=== PATIENT | male | born 1950 | race Caucasian/White ===

== ENCOUNTER 2019-11-08 08:15 | Emergency (ER) | payer MEDICARE, SELFPAY ==
[2019-11-08 08:29] VITALS: BP 126/78; PULSE 66; RESP 16; TEMP 36.1; O2SAT 95
--- NOTE | 2019-11-08 08:29 | ED.GENADULT ---
HPI - General Adult General Chief complaint: Ear Stated complaint: ear infection Time Seen by Provider: 11/08/19 08:26 Source: patient and RN notes reviewed Mode of arrival: ambulatory Limitations: no limitations History of Present Illness HPI narrative: This is a 69 years old male presented office for evaluation of left ear pain since yesterday. Pain radiates down into his throat. Admits to recent swimming. Denies associated symptoms such as cough, fever, or sinus congestion. He tried [id number]-smesqqa eardrops and Tylenol for his symptoms.Denies sick contact. Related Data Home Medications Medication Instructions Recorded Confirmed atorvastatin 20 mg PO DAILY 11/08/19 11/08/19 Allergies Allergy/AdvReac Type Severity Reaction Status Date / Time No Known Allergies Allergy Unverified 11/08/19 08:32 Review of Systems Review of Systems: Narrative: CONSTITUTIONAL: Denies fever, chills ENT: Denies rhinorrhea, congestion. Reports left otalgia. CARDIOVASCULAR: Denies chest pain, palpitation RESPIRATORY: Denies dyspnea, wheezing, cough GASTROINTESTINAL: Denies abdominal pain, nausea, vomiting, diarrhea. SKIN: Denies rash MUSCULOSKELETAL: Denies acute back pain NEUROLOGIC: Denies lightheaded All other systems reviewed are negative, except as documented in HPI. PMFSH Social History Social History Smoking status: Never smoker Comments At time of signature, I agree with nursing past medical, surgical, social and family history. There is no relevant family history pertinent to the presenting complaint. Exam Narrative: Exam Narrative: GENERAL: This is a well-nourished, well-developed patient, in no apparent distress. EYES: Sclera clear/white. Vision is grossly intact. EARS: External ears normal, right auditory canals clear and without drainage, left canal appears erythema and edematous with tragal tenderness. Both TMs intact however there is fluid level. Hearing grossly intact. NOSE: External nose normal with no obvious nasal discharge, nares without redness, no rhinorrhea. THROAT: Mucous membranes moist, posterior pharynx clear. NECK: Neck supple, non-tender without lymphadenopathy, masses or thyromegaly. CARDIOVASCULAR: Regular rate and rhythm without murmurs, gallops, or rubs. RESPIRATORY: Clear to auscultation. Breath sounds equal bilaterally. No wheezes, rales, or rhonchi. GASTROINTESTINAL: Abdomen soft, non-tender, nondistended. Bowel sounds are active. No guarding. SKIN: warm, intact with no suspicious lesions or rash, good texture and turgor. NEURO: awake, alert, and oriented to person, place and time. There were no obvious focal neurologic abnormalities. Steady gait Mackenzie Coma Scale Eye Opening: Spontaneous 4 [place] Coma Scale Motor: Obeys Commands 6 [place] Coma Scale Verbal: Oriented 5 Course Vital Signs Vital signs: Vital Signs Temperature 96.9 F L 11/08/19 08:29 Pulse Rate 66 11/08/19 08:29 Respiratory Rate 16 11/08/19 08:29 Blood Pressure 126/78 11/08/19 08:29 Pulse Oximetry 95 11/08/19 08:29 Temperature 96.9 F L 11/08/19 08:29 Pulse Rate 66 11/08/19 08:29 Respiratory Rate 16 11/08/19 08:29 Blood Pressure 126/78 11/08/19 08:29 Pulse Oximetry 95 11/08/19 08:29 Medical Decision Making MDM Narrative Medical decision making narrative: Discharge instructions reviewed with patient, as well as provided in writing per nursing staff. The instructions also include specific and strict return/GO TO THE ER as well as f/u information. All questions have been answered, and the patient deny any further questions with discharge and discharge plan. Differential Diagnosis Differential Diagnosis: Allergic Rhinitis,Pharyngitis, Sinusitis, Bronchitis, otitis media, cerumen impaction Vital Signs Vital Signs: Vital Signs Temperature 96.9 F L 11/08/19 08:29 Pulse Rate 66 11/08/19 08:29 Respiratory Rate 11/07
== END 2019-11-08 08:49 | disposition home or self-care (01) ==
PROVIDERS: PCP Internal Medicine
DX: H60.332 Swimmer's ear, left ear (principal); E78.00 Pure hypercholesterolemia, unspecified
CPT/HCPCS: 99213; G0463

== ENCOUNTER 2022-06-13 13:28 | Outpatient (CLI) | payer MEDICARE, SELFPAY ==
--- NOTE | ~2022-06-13 | US_ITS ---
US venous doppler [facility] DATE: 06/13/2022 14:16 INDICATION: Left lower extremity edema TECHNIQUE: Real-time and color flow imaging and Doppler analysis of the veins of the left lower extre mity COMPARISON: None FINDINGS: Soft tissue edema is noted in the left popliteal and calf areas. The greater saphenous vein is patent. There is spontaneous and phasic flow and normal augmentation an d color flow signal and normal compression of the deep veins of the left lower extremity. IMPRESSION: No evidence of deep venous thrombosis of the left leg Reviewed, dictated and finalized at Location [facility]. Reviewed, dictated and finalized at location B.
== END 2022-06-13 13:29 | disposition home or self-care (01) ==
PROVIDERS: PCP Internal Medicine; Visit Provider Orthopaedic Surgery
DX: R60.0 Localized edema (principal)
CPT/HCPCS: 93971

== ENCOUNTER 2023-10-11 09:59 | Emergency (ER) | payer MEDICARE, SELFPAY ==
--- NOTE | ~2023-10-11 | US_ITS ---
EXAMINATION:US venous doppler LE INDICATION:Left calf pain and swelling TECHNIQUE: Multiple grayscale, color flow and Doppler images of the left lower extremity deep venous systems were obtained and reviewed. COMPARISON:Ultrasound dated 06/13/2022 FINDINGS: The common femoral, superficial femoral and popliteal veins demonstrate normal respiratory variation, augmentation and compressibility. Color flow is also seen within the posterior tibial, pe roneal, greater saphenous and profunda veins. IMPRESSION: 1: No lower extremity deep venous thrombosis. Reviewed, dictated and finalized at location B.
[2023-10-11 10:04] VITALS: BP 144/75; PULSE 66; RESP 16; TEMP 36.4; O2SAT 99
[2023-10-11 10:48] LABS: Basophils Percent Auto 0.6 % (0.2-1.2); Eosinophils Absolute Auto 0.5 K/mm3 (0-0.3); Eosinophils Percent Auto 6.8 % (0-4.4); Hematocrit 46.6 % (42.0-52.0); Hemoglobin 15.5 g/dL (14.0-18.0); Immature Granulocyte Absolute 0.02 K/mm3 (0.00-0.031); Immature Granulocyte Percent A 0.3 % (0-0.5); Lymphocytes Absolute Auto 1.41 K/mm3 (0.9-3.2); Lymphocytes Percent Auto 20.7 % (18.3-44.2); Mean Corpuscular HGB Conc 33.3 g/dl (32-36); Mean Corpuscular Volume 93.2 fl (80-100); Mean Platelet Volume 9.6 fl (7.4-10.4); Monocytes Absolute Auto 0.6 K/mm3 (0.1-0.6); Monocytes Percent Auto 8.4 % (2.6-8.5); Neutrophils Absolute Auto 4.3 K/mm3 (1.3-6.7); Neutrophils Percent Auto 63.2 % (45.5-73.1); Platelet Count Result 225 k/mm3 (150-375); Red Cell Distribution Width 12.6 % (11.5-14.5); White Blood Count 6.8 K/mm3 (4.5-10.0)
[2023-10-11 10:59] LABS: Alanine Aminotransferase 25 U/L (6-50); Albumin Level 4.4 g/dL (3.5-5.1); Alkaline Phosphatase 81 U/L (38-126); Anion Gap 9 mmol/L (4-12); Aspartate Amino Transferase 25 U/L (17-59); Bilirubin,Total 1.6 mg/dL (0.2-1.3); Blood Urea Nitrogen 24 mg/dL (9-20); Calcium 8.8 mg/dL (8.4-10.2); Carbon Dioxide 26 mmol/L (22-30); Chloride 100 mmol/L (98-107); Estimated CRCL calculation 66 ml/min; Estimated Glomerular Filt Rate > 60; Glucose 106 mg/dL (65-110); Potassium 4.3 mmol/L (3.4-5.0); Sodium 135 mmol/L (137-145)
[2023-10-11 11:02] LABS: Prothrombin Time 13.1 Seconds (11.1-14.7)
[2023-10-11 11:03] LABS: Partial Thromboplastin Time 27.6 Seconds (22.3-36.8)
--- NOTE | 2023-10-11 12:29 | ED.EXTPRO ---
HPI - Extremity Problem General Chief complaint: Extremity Problem,Nontraumatic Stated complaint: left calf painful, swollen Time Seen by Provider: 10/11/23 11:51 History of Present Illness HPI Narrative: 73-year-old male history of bilateral knee replacements presents to the emergency room for evaluation of swelling to his left marroquin and for 1 week. Denies any injury or trauma. No history of DVTs Or clotting disorders. States his observed swelling the around to marroquin which has caused increased pain. Denies a history of CHF. Denies any shortness of breath difficulty breathing. States the swelling began after he mowed the lawn. Denies any pain behind his knee prior to the onset of swelling. Related Data Home Medications Medication Instructions Recorded Confirmed atorvastatin 20 mg tablet 20 mg PO DAILY 11/08/19 11/08/19 Allergies Allergy/AdvReac Type Severity Reaction Status Date / Time No Known Allergies Allergy Unverified 11/08/19 08:32 Review of Systems Review of Systems: ROS unremarkable except for in HPI PMFSH Social History Social History Smoking status: Never smoker Exam Narrative: GENERAL: Well-appearing, well-nourished, no physical limitations, and in no acute distress. HEAD: Normocephalic, atraumatic. EYES: Conjunctivae normal, PERRLA and EOMI. CHEST: Clear to auscultation. No respiratory distress. No wheezes rales or rhonchi. HEART: Regular rate and rhythm. No murmur heard. Normal peripheral pulses. EXTREMITIES: Normal range of motion. +1 pitting edema around the anterior tibia. No calf tenderness. - Homans sign. = Calf measurements. No bony tenderness. SKIN: Warm, dry, no rash. No noted wounds NEURO: No focal deficits. Alert and oriented x3. MAEW. CN's II-XI intact bilaterally, normal gait PSYCH: Cooperative. Normal mood and affect. Course Vital Signs Vital signs: Vital Signs Temperature 36.4 C 10/11/23 10:04 Pulse Rate 66 10/11/23 10:04 Respiratory Rate 16 10/11/23 10:04 Blood Pressure 144/75 H 10/11/23 10:04 Pulse Oximetry 99 10/11/23 10:04 Oxygen Delivery Room Air 10/11/23 10:04 Temperature 36.4 C 10/11/23 10:04 Pulse Rate 66 10/11/23 10:04 Respiratory Rate 16 10/11/23 10:04 Blood Pressure 144/75 H 10/11/23 10:04 Pulse Oximetry 99 10/11/23 10:04 Oxygen Delivery Room Air 10/11/23 10:04 MDM - Extremity (Nontraumatic) Lab Data 10/11/23 10:41 10/11/23 10:41 Labs: Lab Results 10/11/23 Range/Units 10:41 WBC 6.8 (4.5-10.0) K/mm3 RBC 5.00 (4.6-6.20) M/mm3 Hgb 15.5 (14.0-18.0) g/dL Hct 46.6 (42.0-52.0) % MCV 93.2 (80-100) fl MCH 31.0 (26-34) pg MCHC 33.3 (32-36) g/dl RDW 12.6 (11.5-14.5) % Plt Count 225 (150-375) k/mm3 MPV 9.6 (7.4-10.4) fl Immature Gran % (Auto) 0.3 (0-0.5) % Neut % (Auto) 63.2 (45.5-73.1) % Lymph % (Auto) 20.7 (18.3-44.2) % Mathews % (Auto) 8.4 (2.6-8.5) % Eos % (Auto) 6.8 H (0-4.4) % Baso % (Auto) 0.6 (0.2-1.2) % Lymph # (Auto) 1.41 (0.9-3.2) K/mm3 Mathews # (Auto) 0.6 (0.1-0.6) K/mm3 Eos # (Auto) 0.5 H (0-0.3) K/mm3 Baso # (Auto) 0.0 (0.0-0.1) K/mm3 Abs Immat Gran (auto) 0.02 (0.00-0.031) K/mm3 Absolute Neuts (auto) 4.3 (1.3-6.7) K/mm3 Absolute Nucleated RBC 0.000 (0.0-0.012) K/mm3 Nucleated RBC % 0.0 (0.0-0.2) % PT 13.1 (11.1-14.7) Seconds INR 1.0 APTT 27.6 (22.3-36.8) Seconds Sodium 135 L (137-145) mmol/L Potassium 4.3 (3.4-5.0) mmol/L Chloride 100 (98-107) mmol/L Carbon Dioxide 26 (22-30) mmol/L Anion Gap 9 (4-12) mmol/L BUN 24 H (9-20) mg/dL Creatinine 1.00 (0.7-1.3) mg/dL Estim Creat Clear Calc 66 ml/min Estimated GFR > 60 (59 - ) Glucose 106 (65-110) mg/dL Calcium 8.8 (8.4-10.2) mg/dL Total Bilirubin 1.6 H (0.2-1.3) mg/dL AST 25 (17-59) U/L ALT 25 (6-50) U/L Alkaline Wolf
[2023-10-11 12:41] VITALS: BP 137/79; PULSE 72; RESP 18; TEMP 36.6; O2SAT 97
== END 2023-10-11 12:43 | disposition home or self-care (01) ==
PROVIDERS: Emergency Provider Nurse Practitioner Family; PCP Internal Medicine
DX: R60.0 Localized edema (principal); Z96.653 Presence of artificial knee joint, bilateral; Z79.899 Other long term (current) drug therapy; M79.662 Pain in left lower leg
CPT/HCPCS: 36415; 80053; 85025; 85610; 85730; 93971; 99284

== ENCOUNTER 2024-06-23 09:46 | Outpatient (CLI) | payer MEDICARE, SELFPAY ==
--- NOTE | ~2024-06-23 | CT_ITS ---
EXAMINATION: CT cervical spine wo con DATE: 06/23/2024 10:00 INDICATION: Neck pain TECHNIQUE: Computed tomography (CT) of the cervical spine was performed without intravenous contrast. Automated exposure control and iterative reconstruction technique were employed. The dose-length pro duct was 281.35 mGy-cm. COMPARISON: None. FINDINGS: Vertebral Body Alignment: 2 mm anterolisthesis at C3-4 and C4-5. 3 mm retrolisthesis at C5-6. 5 mm an terolisthesis at C7-T1. Craniocervical and atlantoaxial alignment: Moderate degenerative change. Mild pannus formation. Align ment intact. Osseous structures/fracture: No evidence of a lytic or blastic process in the visualized spine. No e vidence of acute fracture. Bilateral facet fusions at C2-3 through C3-4. Left-sided fusion at the C1- 2 articulation. Cervical soft tissues: The paraspinal soft tissues planes are maintained. Degenerative changes: Multilevel mild-moderate disc space narrowing and marginal osteophytosis. Multi level moderate facet arthropathy. Severe left neural foraminal narrowing at C5-6. Severe right neural foraminal narrowing at C4-5. No severe central canal narrowing. IMPRESSION: Grade 2 anterolisthesis at C7-T1. Grade 1 listheses noted at multiple additional levels. Mild-moderate degenerative disc disease. Multilevel moderate facet arthropathy. Severe neural foraminal narrowing on the right at C4-5 and on the left at C5-6, secondary to degenera tive disc, uncovertebral joint, and facet change. Erosive arthropathy with fusions at multiple locations, correlate for history of inflammatory arthrop athy such as psoriatic arthritis. Reviewed, dictated and finalized at location K. IMPRESSION: Grade 2 anterolisthesis at C7-T1. Grade 1 listheses noted at multiple additiona l levels. Mild-moderate degenerative disc disease. Multilevel moderate facet arthropathy. Severe neural foraminal narrowing on the right at C4-5 and on the left at C5-6, secondary to degenerative disc, uncovertebral joint, and facet change. Erosive arthropathy with fusions at multiple locations, correlate for history o f inflammatory arthropathy such as psoriatic arthritis.
== END 2024-06-23 09:47 | disposition home or self-care (01) ==
LOC: MICIMG 09:47
PROVIDERS: PCP Nurse Practitioner Acute Care; Visit Provider Nurse Practitioner Acute Care
DX: M50.30 Other cervical disc degeneration, unspecified cervical region (principal)
CPT/HCPCS: 72125

== ENCOUNTER 2025-01-14 14:44 | Outpatient (CLI) | payer MEDICARE, SELFPAY ==
--- NOTE | 2025-01-14 | ECG_ITS ---
Test Date: 2025-01-14 15:13:22 Measurements Intervals [place] Rate: 69 P: 30 GA: 166 QRS: 66 QRSD: 85 T: 56 QT: 387 QTc: 417 Interpretive Statements SINUS RHYTHM BASELINE ARTIFACT- I, II, III, AVR, AVL NORMAL ECG No previous ECG available for comparison Electronically Signed On 01-14-2025 15:34:45 CDT by Erik Edwards D.O.
[2025-01-14 15:09] LABS: Hematocrit 43.0 % (42.0-52.0); Hemoglobin 14.1 g/dL (14.0-18.0); Immature Granulocyte Percent A 0.1 % (0-0.5); Lymphocytes Absolute Auto 1.47 K/mm3 (0.9-3.2); Mean Corpuscular HGB Conc 32.8 g/dl (32-36); Mean Corpuscular Hemoglobin 30.7 pg (26-34); Mean Corpuscular Volume 93.7 fl (80-100); Nucleated Red Blood Cells Absolute Auto 0.000 K/mm3 (0.0-0.012); Nucleated Red Blood Cells Perc 0.0 % (0.0-0.2); Platelet Count Result 291 k/mm3 (150-375); Red Blood Count 4.59 M/mm3 (4.6-6.20); White Blood Count 6.8 K/mm3 (4.5-10.0)
[2025-01-14 15:19] LABS: Hemoglobin A1C 5.6 % (<5.7)
[2025-01-14 15:35] LABS: Alanine Aminotransferase 27 U/L (6-50); Albumin Level 3.9 g/dL (3.5-5.1); Alkaline Phosphatase 136 U/L (38-126); Anion Gap 6 mmol/L (4-12); Aspartate Amino Transferase 26 U/L (17-59); Bilirubin,Total 0.7 mg/dL (0.2-1.3); Blood Urea Nitrogen 17 mg/dL (9-20); CRP < 0.5 mg/dL (<1.0); Calcium 8.7 mg/dL (8.4-10.2); Carbon Dioxide 29 mmol/L (22-30); Chloride 103 mmol/L (98-107); Estimated Glomerular Filt Rate > 60; Glucose 149 mg/dL (65-110); Potassium 4.2 mmol/L (3.4-5.0); Sodium 138 mmol/L (137-145); Total Protein 6.9 g/dL (6.3-8.2)
--- OUTSIDE RECORDS SUMMARY | 2025-01-14 15:52 | XMS_ITS | Clinical Summary ---
Author Organization [facility] [employer] Address [address] [place] [address] Care Team Providers Care Buffet Waiter/Waitress Name Role Phone Billie Caballero MD Primary Care Provider Source Comments [facility] [employer],non-owned Affiliates and Associated Physician Practices is amultiple site organization consisting of ambulatory clinics and hospital sitesin [place], [place], [place] and [place]. This disclosure is being madepursuant to the Care Everywhere program and may not contain all information available regarding this patient. Last updated 17.[facility] [employer] Allergies No known active allergies Medications * Be aware that medications may not be up to date on this document. Alwaysverify current medications with the patient. ergocalciferol (DRISDOL) 1.25 MG (81130 UT) capsule ergocalciferol (vitamin D2) 1,250 mcg (50,000 unit) capsule TAKE 1 CAPSULE BY MOUTH EVERY 2 WEEKS Active diphenhydrAMIN E HCl (BENADRYL ALLERGY PO) Take by mouth as needed Active Fexofenadine HCl (MUCINEX ALLERGY PO) Take by mouth once daily Active Fluticasone Propionate (FLONASE NA) [place] into the nose once daily Active Active Problems Problem Noted Date Diagnosed Date Liver hemangioma 02/29/2020 Osteoarthrosis 02/25/2020 Elevated liver enzymes 02/25/2020 Overview (08/31/2020): 08/25/20 Fibroscan CAP 268, LSM 5.1 kPa Social History Tobacco Use Types Packs/Day Years Used Date Smoking Tobacco: Never Smokeless Tobacco: Never Alcohol Use Standard Drinks/Week Comments Yes 0 (1 standard drink = 0.6 oz pur e alcohol) SOCIALLY- 4 beers Sex and Gender Information Value Date Recorded Sex Assigned at Not on file 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 Gender Identity Not on file Sexual Orientation Not on file Last Filed Vital Signs Vital Sign Reading Time Taken Comments Blood Pressure 135/79 08/25/2020 12:35 PM CDT Pulse 67 08/25/2020 12:35 PM CDT Temperature 36.2 C (97.2 F) 02/25/2020 2:30 PM FINANCIAL WRITER Respiratory Rate 18 08/25/2020 12:35 PM CDT Oxygen Saturation 99% 08/25/2020 12:35 PM CDT Inhaled Oxygen Concentration - - Weight 97.5 kg (215 lb) 08/25/2020 12:35 PM CDT Height 182.9 cm (6') 02/25/2020 2:30 PM FINANCIAL WRITER Body Mass Index 29.16 02/25/2020 2:30 PM FINANCIAL WRITER Plan of Treatment Health Maintenance Due Date Last Done Comments COLOGUARD (AGES 45-75) - COLON CA SCREENING 1952 COLON MONITORING 1952 COLONOSCOPY - COLON CA SCREENING 1952 CT COLONOGRAPHY - COLON CA SCREENING 1950 Colorectal Cancer Screening 1952 FIT - COLON CA SCREENING 1952 FLEX SIG - COLON CA SCREENING 1952 LIPID TESTING 1950 MEDICARE AWV 12 MONTHS 1952 DTAP/TDAP/TD VACCINES (1 - Tdap) 1971 PNEUMOCOCCAL VACCINE 50+ (1 of 1 - PCV) 2002 ZOSTER VACCINE (1 of 2) 2002 SCREENING FOR DIABETES 02/25/2020 DEPRESSION SCREENING 03/25/2024 COVID-19 VACCINE ( - 2024- season) 2024 12/27/2022, 02/12/2022, 10/05/2021, Additional history exists INFLUENZA VACCINE (#1) 2024 4, 12/27/2022, 12/05/2020, Additional history exists Respiratory Syncytial Virus (RSV) Vaccine Pt: or over 60 yrs (1 - 1-dose 75+ series) 2027 HEPATITIS C SCREENING Completed 03/07/2020 HEPATITIS B VACCINE Aged Out No longe r eligible based on patient's age to complete this topic HIB VACCINE Aged Out No longer eligi ble based on patient's age to complete this topic HPV VACCINE Aged Out No longer eligi ble based on patient's age to complete this topic MENINGOCOCCAL (Group B) VACCINE SHARED DECISION-MAKING Aged Out No longer eligible based on patient's age to complete this topic MENINGOCOCCAL GROUPS A/C/Y/W VACCINE Aged Out No longer eligible based on patient's age to complete this topic Goals Goal Patient Goal Type Associated Problems Recent Progress Patient-Stated? Author Medication Management General On track( 021 12:26 PM CDT) No Taylor Bertrand RN Note: Expected end date: Ongoing Interventions: Take all medications as prescribed Let your doctor know right away about any changes in your medications Make sure to request a refill of your medication at least one week prior to your last dose Procedures Procedure Name Priority Date/Time Associated Diagnosis Comments HEPATITIS SCREEN ACUTE (EXTERNAL RESULTS) Routine 03/07/2020 from Last 3 Months or Most Recently Relevant to Health Maintenance Results * HEPATITIS SCREEN ACUTE (EXTERNAL RESULTS) (03/07/2020) Hepatitis A Virus Antibody IgM (EXTERNAL RESULT) Hepatitis B Core Virus Antibody IgM (EXTERNAL RESULT) Non-Reacti ve Hepatitis B Virus Surface Antigen (EXTERNAL RESULT) Non-Reacti ve Hepatitis C Antibody Screen (EXTERNAL RESULT) Non-Reacti ve Hepatitis C Virus Index (EXTERNAL) Blood 03/07/2020 us Historical Provider LAB - CHEMISTRY ORDERABLE S Edited Result - Final from Last 3 Months or Most Recently Relevant to Health Maintenance Insurance MEDICARE [facility] [place] [address] [facility] MEDICARE AARP Care Teams Buffet Waiter/Waitress Relationship Specialty Start Date End Date Billie Caballero MD [address] [phone] PCP - General 02/20/20
--- OUTSIDE RECORDS SUMMARY | 2025-01-14 15:52 | XMS_ITS | Clinical Summary ---
Author Organization [facility] Address [address] [place] [id number] Care Team Providers Care Dobby Looms Pegger Name Role Phone Unavailable Primary Care Provider Unavailabl e Social History Tobacco Use Types Packs/Day Years Used Date Smoking Tobacco: Never Assessed Sex and Gender Information Value Date Recorded Sex Assigned at Not on file Legal Sex Male 10:04 AM CDT Gender Identity Not on file Sexual Orientation Not on file Plan of Treatment Health Maintenance Due Date Last Done Comments Colorectal Cancer Screening Colonoscopy (10 Years) 1952 Hepatitis C 1970 DTaP, Tdap and Td Vaccines ( 1 - Tdap) 1971 Pneumococcal Vaccine: 50+ Ye ars (1 of 1 - PCV) 2002 Zoster Vaccines (1 of 2) 2002 Annual Medicare Wellness Visit 2017 COVID-19 Vaccine ( - 2023-2 5 season) 2024 Influenza Adult (#1) 2024 RSV Immunization or 60+ Years (1 - 1-dose 75+ series) 2027 Hepatitis A Vaccines Aged Out No long er eligible based on patient's age to complete this topic Meningococcal B Vaccine Aged Out No l onger eligible based on patient's age to complete this topic Meningococcal Vaccine Aged Out No yoel taurus eligible based on patient's age to complete this topic RSV Immunizations Under 20 Months Aged Out No longer eligible based on patient's age to complete this topic Insurance MEDICARE
--- OUTSIDE RECORDS SUMMARY | 2025-01-14 15:52 | XMS_ITS | Clinical Summary ---
Author Organization [facility] Address [address] [place] [address] Care Team Providers Care Intraoperative Neuro Tech Name Role Phone Emiliano Caballero MD Primary Care Provide r Allergies Active Allergy Reactions Criticality Noted Date Comments Grass Pollen Other (See comments) Low 03/04/2020 Nasal drainage House Dust Other (See comments) Low 03/04/2020 Nasal drainage Tea Tree Other (See comments) Low 03/04/2020 Nasal drainage Medications atorvastatin (LIPITOR) 20 mg tabletIndicati ons:hyperlipid emia Take 1 tablet (20 mg total) by mouth nightly Active zolpidem (AMBIEN) 10 mg tabletIndicati ons:Sleep-Onse t Insomnia Take 1 tablet (10 mg total) by mouth nightly as needed for sleep Pt reports last use was about 6 months ago. Active diphenhydrAMIN E 25 mg capsule Take 1 tablet/capsule (25 mg total) by mouth every 6 (six) hours as needed for allergies Active fluticasone propionate (FLONASE) 50 mcg/actuation nasal spray Administer 1 spray into each nostril daily as needed for rhinitis Active cetirizine 10 mg capsule Take 1 capsule by mouth daily as needed (allergy medications) Active oxyCODONE (ROXICODONE) 5 mg immediate release tabletIndicati ons:Pain Take 1 tablet (5 mg total) by mouth every 4 (four) hours as needed for pain 20 tablet 5 Active acetaminophen (TYLENOL) 500 mg tablet Take 2 tablets (1,000 mg total) by mouth every 6 (six) hours 90 tablet 1 5 Active aspirin 81 mg enteric coated tabletIndicati ons:prevention of thrombosis Take 1 tablet (81 mg total) by mouth 2 (two) times a day for 14 days 28 tablet 5 Active celecoxib (CeleBREX) 100 mg capsule Take 1 capsule (100 mg total) by mouth 2 (two) times a day for 14 days 28 capsule 5 Active docusate sodium (COLACE) 100 mg capsuleIndicat ions:constipat ion Take 1 capsule (100 mg total) by mouth 2 (two) times a day 30 capsule 1 5 Active ALPRAZolam (XANAX) 1 mg tablet alprazolam 1 mg tablet TAKE 1 TAB BY MOUTH BEFORE CT SCAN, NO DRIVING, CAN CAUSE DROWSINESS. MAY TAKE 2 TABS PRIOR TO TEST 12/25/19 25 Discontin ued(Stop Taking at Discharge ) metFORMIN (GLUCOPHAGE) 500 mg tabletIndicati ons:pre-diabet es Take 1 tablet (500 mg total) by mouth 2 (two) times a day Pt states he stopped medication in May/June due to side effects (joint pain). Prescribing provider is unaware patient stopped medication. 5 12/24/19 25 Discontin ued(Therdeon allan completed ) Active Problems Problem Noted Date Diagnosed Date Glenohumeral arthritis, right 12/23/2024 Edema of lower extremity 06/13/2022 023 Localized edema 06/13/2022 08/24/2022 Arthralgia of left knee 05/30/2022 08/25/19 23 Chronic kidney disease 05/30/2022 3 Lipoma of skin 05/30/2022 08/24/2022 Pain in joint of left shoulder 05/30/2022 0 08/24/2022 Pain of cervical spine 05/30/2022 3 Persistent insomnia 05/30/2022 08/24/2022 Prediabetes 05/30/2022 08/24/2022 Right wrist pain 05/30/2022 08/24/2022 Vitamin D deficiency 05/30/2022 08/24/2022 Acquired hallux rigidus 08/01/2020 Pain in left foot 08/01/2020 At risk for obstructive sleep apnea 06/20/2020 Hyperlipidemia 06/20/2020 Osteoarthritis of glenohumeral joint, left 06/06 Osteoarthritis 03/04/2020 Knee pain 03/04/2020 Hip pain 03/04/2020 Eosinophil count raised 03/04/2020 Liver hemangioma 02/29/2020 Elevated liver enzymes 02/25/2020 Osteoarthrosis 02/25/2020 Pain in both feet 01/15/2016 Encounters Date Type Department Care Team Description 01/05/2025 11:40 AM CDT Office Visit [facility] Medicine Orthopaedic Surgery [address] 1st Floor [address] [place] [address] Rg Larkin MD S/P orthopedic surgery, follow-up exam (Primary Dx); Osteoarthritis of right glenohumeral joint 01/05/2025 11:33 AM CDT - 01/05/2025 11:59 PM CDT Hospital Encounter [facility] Radiology at [facility], located [facility] [address] [place] [address] S/P orthopedic surgery, follow-up exam Discharge Disposition: Discharge to home or self care 12/23/2024 2:23 PM CDT Anesthesia Event [facility] Operating Room [address] [place] [address] Mendel Acosta MD Keeline, Jessica Taylor MD 12/23/2024 1:40 PM CDT - 12/23/2024 4:20 PM CDT Surgery [facility] [address] [address] Rg Larkin MD RIGHT ANATOMIC TOTAL SHOULDER ARTHROPLASTY 12/23/2024 11:25 AM CDT - 12/24/2024 10:55 AM CDT Hospital Encounter [facility] [address] [address] Rg Larkin MD Glenohumeral arthritis, right (Primary Dx) Discharge Disposition: Discharge to home or self care 12/01/2024 1:30 PM CDT Lab [facility] [address] [place] [address] [address] [place] [address] Preoperative testing; Type 2 diabetes mellitus with stage 3a chronic kidney disease, without long-term current use of insulin (HCC); Primary osteoarthritis of right shoulder; Disorder of bone, unspecified 12/01/2024 1:00 PM CDT Pre-Admission Testing [facility] [address] [place] [address] Preoperative testing (Primary Dx); Type 2 diabetes mellitus with stage 3a chronic kidney disease, without long-term current use of insulin (HCC) 12/01/2024 12:45 PM CDT - 12/01/2024 11:59 PM CDT Hospital Encounter [facility] Radiology at [facility] Medicine [address] [place] [address] Arthritis of right glenohumeral joint; Right shoulder pain, unspecified chronicity Discharge Disposition: Discharge to home or self care 12/01/2024 6:42 AM CDT - 12/01/2024 11:59 PM CDT Hospital Encounter [facility] [address] [place] [address] Discharge Disposition: Discharge to home or self care from Last 3 Months Immunizations Immunization Administration Dates Next Due Influenza, Quadrivalent, Hig h Dose, Preservative Free, Intrr 01/19/2020 Influenza, Quadrivalent, Spl it, Intramuscular 12/05/2020 Influenza, Quadrivalent, Spl it, Preservative Free, Intramuscular 01/24/2017,01/05/2016,01/20/2015 Influenza, Trivalent, High D ose, Split, Preservative Free, Intramuscular 01/19/2020,01/29/2018,01/12/2014,01/01 Influenza, Trivalent, IM (MDV) 12/23/2018,2016 Moderna SARS-CoV-2 Monovalen t Vaccination (12+ YRS) 12/29/2020,05/27/2020 Moderna Sars-cov-2 Monovalen t Booster Vaccination .25 Ml dose (12+ YRS) 10/05/2021 Pneumococcal Conjugate PCV 13 12/09/2017 Pneumococcal Polysaccharide PPV23 01/13/2019 Td, adsorbed 10/01/2016 Tdap 10/01/2016 ZOSTER LIVE 09/04/2013 Surgical History Surgery Date Site/Laterality Comments SINUS SURGERY 03/25/2016 - 03/24/2017 KNEE SURGERY Bilateral arthroplasy COLONOSCOPY TOE SURGERY TOTAL SHOULDER ARTHROPLASTY 03/25/2020 - 03/24/2021 Left Medical History Medical History Date Comments Anxiety Arthritis Hypercholesteremia Allergic rhinitis Awareness under anesthesia woke up during sinus surgery, remember the noise, then went back out--1980s Sinusitis Type 2 diabetes mellitus GERD (gastroesophageal reflux disease) Hypertension Family History Medical History Relation Name Comments Heart disease Father Hypertension Father Stroke Father Heart disease Maternal Grandmother Anesthesia problems Neg Hx Relation Name Status Comments Father Maternal Grandmother Social History Tobacco Use Types Packs/Day Years Used Date Smoking Tobacco: Never Passive Smoke Exposure: Past Smokeless Tobacco: Never Tobacco Cessation:Counseling Given: Not Answered Alcohol Use Standard Drinks/Week Comments Yes 6 (1 standard drink = 0.6 oz pur e alcohol) AUDIT-C Answer Date Recorded Q1: How often do you have a drink containing alc ohol? 2-3 times a week 12/01/2024 Q2: How many drinks containi ng alcohol do you have on a typical day when you are drinking? 3 or 4 12/01/2024 Q3: How often do you have si x or more drinks on one occasion? Never 12/01/2024 Personal Safety Answer Date Recorded Have you ever been in or are you currently in a harmful physical or emotional relationship or is someone making you feel afraid or unsafe? 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 Gender Identity Not on file Sexual Orientation Not on file Occupation Industry Job Start Date Job End Date Retired Not on file Not on file Not on file Obstetrics History Last Filed Vital Signs Vital Sign Reading Time Taken Comments Blood Pressure 119/60 12/24/2024 7:50 AM CDT Pulse 62 12/24/2024 7:50 AM CDT Temperature 36.4 C (97.6 F) 12/24/2024 7:50 AM CDT Respiratory Rate 16 12/24/2024 7:50 AM CDT Oxygen Saturation 96% 12/24/2024 7:50 AM CDT Inhaled Oxygen Concentration - - Weight 96.2 kg (212 lb) 12/23/2024 2:22 PM CDT Height 182.9 cm (6') 12/23/2024 6:00 PM CDT Body Mass Index 28.75 12/23/2024 2:22 PM CDT Plan of Treatment Health Maintenance Due Date Last Done Comments Albumin Creatinine Ratio, Urine 1952 Colon Cancer Screening-Colonoscopy 1952 Depression Screening 1952 Hepatitis C Screening 1952 Dilated Eye Exam 1952 Foot Exam 1952 Lipid Panel 1952 Hepatitis B Screening 1970 Zoster Vaccine (2 of 3) 10/30/2013 09/04/2013 Well Visit 65+ 2017 Covid-19 Vaccine (2024-2 6 season) 2024 12/27/2022, 10/05/2021, 02/08/2021, Additional history exists Influenza Vaccine (#1) 2024 , 12/27/2022, 12/05/2020, Additional history exists Hemoglobin A1C 05/31/2025 12/01/2024 Fall Risk Assessment 12/24/2025 12/24/2024, 08/12/19 25 eGFR 12/24/2025 12/24/2024, 11/2024, 06/22/2020 DTaP/Tdap/Td Vaccine (3 - Td or Tdap) 10/01/2026 10/01/2016, 10/01/2016 Pneumococcal vaccine 65+ Completed 01/13/2019, 11/23 Goals Goal Patient Goal Type Associated Problems Recent Progress Patient-Stated? Author CCM Chronic Pain Care Plan Chronic Care Management No Zunilda Pemberton, RN Note: Problem: Chronic Pain Goals: 1. Minimize further functional decline 2. Maximize quality of life 3. Control pain Strategies: - Activity/exercise program recommendation - Conservative stepwise pain medicine strategy with multi-disciplinary approach - Recommend healthy lifestyle strategies and compensatory methods as needed Reduce the likelihood of falling Lifestyle Zunilda Wilburn, RN Note: Below are four things you can do to prevent falls: Begin an exercise program to improve your leg strength & balance Ask your doctor or pharmacist to review your medicines Get annual eye check-ups & update your eyeglasses Make your home safer by: Removing clutter & tripping hazards Putting railings on all stairs & adding grab bars in the bathroom Having good lighting, especially on stairs Contact your local community or senior center for information on exercise, fall prevention programs, or options for improving home safety. Autogenerated Goal Care Plan Autogenerated Problem No Lata Ramey RN Medical Devices Implanted Type Area Lead Clinical Research Coordinator Device Identifier Shelf Expiration Date Model / Serial / Lot Fer Orthopaedics 6191-1-010 Simplex P Radiopaque Full Dose Cement Bone Sterile - [id number] - [id number] Implanted:Qty: 1 on 06/21/2020 by Jamil Barajas MD at [facility] Bone Cement Left: Shoulder Fer Orthopaedics 03/24/2021 6191-1-010 / 6191-1-001 / [id number] Joint Right: Knee Depuy Orthopaedics Inc [id number] Global Ap 52mm [place] Glenoid Peg Fixation Premieron - [id number] Implanted:Qty: 1 on 06/21/2020 by Jamil Barajas MD at [facility] Left: Shoulder Depuy Orthopaedics Inc 03/24/2025 [id number] / / [id number] Stem Short Pc Humeral 10x44 Shoulder - [id number] - [id number] Implanted:Qty: 1 on 06/21/2020 by Jamil Barajas MD at [facility] Left: Shoulder Depuy Orthopaedics Inc [id number] 02/21/2030 [id number] / 1100-10-800 / [id number] Depuy Synthes Sales Inc [id number] Global Unite 10mm Shoulder 135d Body Humeral Por[place]oat Sterile - [id number] - [id number] Implanted:Qty: 1 on 06/21/2020 by Jamil Barajas MD at [facility] Left: Shoulder Depuy [employer] Inc 03/24/2030 [id number] / -[id number] / [id number] Depuy Orthopaedics Inc [id number] Global Unite 52mm 18mm Modular Eccentric Shoulder Head Humeral - [id number] - [id number] Implanted:Qty: 1 on 06/21/2020 by Jamil Barajas MD at [facility] Left: Shoulder Depuy Orthopaedics Inc 01/22/2030 [id number] / 1100-52-610 / [id number] [employer]bet[employer] Inc Laminating Machine Operator Helper Perform Centered Modular Humeral Head Ti Tfg005 - [id number] Implanted:Qty: 1 on 12/23/2024 at [facility] Right: Shoulder [employer] Inc 07/02/2029 [id number] / [id number] / [place] Orthopaedics Simplex P Radiopaque Full Dose Cement Bone Sterile 6191-1-010 - [id number] Implanted:Qty: 1 on 12/23/2024 at [facility] Right: Shoulder Fer Orthopaedics 03/24/2027 [id number] / / [id number] [employer]bet[employer] Inc Aequalis Perform Cortiloc 60mm Peg Shoulder Large Component Latex Free Xmi147 - [id number] Implanted:Qty: 1 on 12/23/2024 at [facility] Right: Shoulder [employer] Inc 07/16/2028 [id number] / [id number] / [employer] Head Humeral Shoulder Modular Aequalis Perform [id number] [place] Chromium [id number] - [id number] Implanted:Qty: 1 on 12/23/2024 at [facility] Right: Shoulder [employer] 06/29/2026 [id number] / [id number] / [employer] Tray Stem Humeral Shoulder Reverse Aequalis Perform Dwx3ss - [id number] Implanted:Qty: 1 on 12/23/2024 at [facility] Right: Shoulder [employer] 08/04/2029 [id number] / [id number] / Procedures Procedure Name Priority Date/Time Associated Diagnosis Comments XR SHOULDER RIGHT 2 OR MORE VIEWS Schedule Routine, Read Routine (OP Routine) 01/05/2025 11:37 AM CDT S/P orthopedic surgery, follow-up exam POCT GLUCOSE DEVICE Routine 12/24/2024 7:52 AM CDT EGFR Routine 12/24/2024 4:33 AM CDT HEMOGLOBIN AND HEMATOCRIT Routine 12/24/2024 4:33 AM CDT BASIC METABOLIC PANEL Routine 12/24/2024 4:33 AM CDT POCT GLUCOSE DEVICE Routine 12/23/2024 9:42 PM CDT POCT GLUCOSE DEVICE Routine 12/23/2024 7:10 PM CDT XR SHOULDER RIGHT 2 OR MORE VIEWS IP Routine 12/23/2024 4:36 PM CDT POCT GLUCOSE DEVICE Routine 12/23/2024 4:25 PM CDT OK AN PROCEDURE PLACEHOLDER Routine 12/23/2024 2:58 PM CDT OK AN ELECTIVE ENDOTRACHEAL AIRWAY Routine 12/23/2024 2:58 PM CDT POCT GLUCOSE DEVICE Routine 12/23/2024 2:48 PM CDT ARTHROPLASTY TOTAL SHOULDER 12/23/2024 2:23 PM CDT Primary osteoarthritis of right shoulder Case Notes Equipment: tornier perform, slingshot no pillow, ice machine, pulleysPosition: Beach chair w/ trimano arm holderPeripheral Nerve Block: single shot no additive w/ zynrelef Special Needs TORNIER PERFORM OK AN PROCEDURE PLACEHOLDER Routine 12/23/2024 1:14 PM CDT OK AN PROCEDURE PLACEHOLDER Routine 12/23/2024 1:13 PM CDT POCT GLUCOSE DEVICE Routine 12/23/2024 12:24 PM CDT PAIN BLOCK Routine 12/23/2024 12:02 PM CDT EGFR Routine 12/01/2024 2:42 PM CDT Primary osteoarthritis of right shoulder Preoperative testing DIFFERENTIAL AUTO Routine 12/01/2024 2:42 PM CDT Preoperative testing COMPREHENSIVE METABOLIC PANEL Routine 12/01/2024 2:42 PM CDT Primary osteoarthritis of right shoulder Preoperative testing VITAMIN D 25 HYDROXY Routine 12/01/2024 2:42 PM CDT Primary osteoarthritis of right shoulder Preoperative testing Disorder of bone, unspecified HEMOGLOBIN A1C Routine 12/01/2024 2:42 PM CDT Preoperative testing Type 2 diabetes mellitus with stage 3a chronic kidney disease, without long-term current use of insulin (HCC) CBC WITH AUTO DIFFERENTIAL Routine 12/01/2024 2:42 PM CDT Preoperative testing CT SHOULDER RIGHT WO CONTRAST Schedule Routine, Read Routine (OP Routine) 12/01/2024 1:10 PM CDT Arthritis of right glenohumeral joint Right shoulder pain, unspecified chronicity from Last 3 Months Results * XR Shoulder Right 2 or More Views (01/05/2025 11:37 AM CDT) Anatomical Region Laterality Modality Upper Extremities, Shoulder Right Comp uted Radiography 01/05/2025 1:45 PM CDT Impressions 01/05/2025 3:07 PM CDT 1. Right total shoulder arthroplasty expected position without periprosthetic fracture. Dictated by: Corky White M.D. The radiology attending physician has personally reviewed this study, and had reviewed and/or edited this written report and agrees with it. Electronically signed by: Wilfrid Echeverria M.D. Narrative 01/05/2025 3:07 PM CDT EXAMINATION: XR SHOULDER RIGHT 2 OR MORE VIEWS HISTORY: 74-year-old with right shoulder pain status post right total shoulder arthroplasty. FINDINGS: Comparison with right shoulder radiograph dated 12/23/2024. Right total shoulder arthroplasty is in expected position without periprosthetic fracture or lucency. Moderate acromioclavicular joint osteoarthritis. Interval reduction in soft tissue gas. Procedure Note Wilfrid Echeverria MD - 01/05/2025 EXAMINATION: XR SHOULDER RIGHT 2 OR MORE VIEWS HISTORY: 74-year-old with right shoulder pain status post right total shoulder arthroplasty. FINDINGS: Comparison with right shoulder radiograph dated 12/23/2024. Right total shoulder arthroplasty is in expected position without periprosthetic fracture or lucency. Moderate acromioclavicular joint osteoarthritis. Interval reduction in soft tissue gas. IMPRESSION: 1. Right total shoulder arthroplasty expected position without periprosthetic fracture. Dictated by: Corky White M.D. The radiology attending physician has personally reviewed this study, and had reviewed and/or edited this written report and agrees with it. Electronically signed by: Wilfrid Echeverria M.D. Rg Larkin MD IMG XR PROCEDURES Fin al Result * POCT glucose (12/24/2024 7:52 AM CDT) [facility] Glucose, POC 97 70 - 199 mg/dL Comment: Interpretive Data Glucose is assumed to be non-fasting. Fasting Glucose reference ranges are: 0 - 150 years: 70 mg/dL - 99 mg/dL Current interpretive data was last revised on 2013. POC Device Number [id number] TUCKER PARRISH Blood 12/24/2024 7:52 AM CDT 12/24/2024 7:52 AM CDT Rg Larkin MD LAB POCT ORDERABLES - DEVICE Final Result [facility] [address] [facility]. Department [place] [place] [address] * eGFR (12/24/2024 4:33 AM CDT) [facility] eGFR 67 >=60 mL/min/1. 73 m2 Comment: Interpretive Data Reference Interval Normal >/= 90 mL/min/1.73m2 Mildly decreased* 60 - 89 mL/min/1.73m2 Mildly to moderately decreased 45 - 59 mL/min/1.73m2 Moderately to severely decreased 30 - 44 mL/min/1.73m2 Severely decreased 15 - 29 mL/min/1.73m2 Kidney Failure < 15 mL/min/1.73m2 *Relative to young adult level Estimated glomerular filtration rate is determined by the 2020 CKD-EPI equation recommended by the National Kidney Foundation (A Unifying Approach to GFR Estimation: Recommendations of the NKF-ASK Task Force on Reassessing the Inclusion of Race in Diagnosing Kidney Disease, JASN 2020). The CKD-EPI equation should not be used for patients with unstable renal function and has not been validated in children and those over 70. Current interpretive data was last reviewed 2021. Blood 12/24/2024 4:33 AM CDT 12/24/2024 4:35 AM CDT Virgen Birch MD LAB BLOOD ORDERABLE S Final Result Performing Organization Address City/[facility]/ZIP Co de Phone Number [facility] [address] [facility] [place] [address] * Hemoglobin and hematocrit (12/24/2024 4:33 AM CDT) Hgb 14.2 13.0 - 17.5 g/dL Hct 43.6 38.9 - 50.3 % TUCKER MOSLEY Blood 12/24/2024 4:33 AM CDT 12/24/2024 4:35 AM CDT Virgen Birch MD LAB BLOOD ORDERABLE S Final Result [facility] [address] [employer] [facility] [address] [place] [address] * Basic metabolic panel (12/24/2024 4:33 AM CDT) Sodium 141 135 - 145 mmol/L Potassium, pl 4.9 3.3 - 4.9 mmol/L TUCKER MOSLEY Chloride 104 97 - 110 mmol/L [facility] CO2 28 22 - 32 mmol/L [facility] Anion gap 9 2 - 15 mmol/L [facility] BUN 19 6 - 25 mg/dL [facility] Creatinine 1.16 0.80 - 1.30 mg/dL [facility] Glucose 116 70 - 199 mg/dL [facility] Comment: Interpretive Data Fasting glucose >/= 126 mg/dl is diagnostic for diabetes. Fasting is defined as no caloric intake for at least 8 hours. Fasting glucose between 100 mg/dl to 125 mg/dl is diagnostic of prediabetes. In a patient with classic symptoms of hyperglycemia or hyperglycemic crisis, a random glucose >/= 200 mg/dl is diagnostic for diabetes. In the absence of unequivocal hyperglycemia, results should be confirmed by repeat testing. The classification and Diagnosis of Diabetes Diabetes Care 202; 46: S19-S40. Current interpretive data was last revised 2022. Calcium 9.2 8.5 - 10.3 mg/dL [facility] Blood 12/24/2024 4:33 AM CDT 12/24/2024 4:35 AM CDT us Virgen Birch MD LAB BLOOD ORDERABLE S Final Result [facility] [address] [facility] Department [place] [address] * (ABNORMAL) POCT glucose (12/23/2024 9:42 PM CDT) [facility] Signature Glucose, POC 211(H) 70 - 199 mg/dL Comment: Interpretive Data Glucose is assumed to be non-fasting. Fasting Glucose reference ranges are: 0 - 150 years: 70 mg/dL - 99 mg/dL Current interpretive data was last revised on 2013. POC Device Number [id number] TUCKER MOSLEY Blood 12/23/2024 9:42 PM CDT 12/23/2024 9:42 PM CDT us Rg Larkin MD LAB POCT ORDERABLES - DEVICE Final Result Performing Organization Address [facility] de Phone Number [facility] [address] [facility] [place] [address] * POCT glucose (12/23/2024 7:10 PM CDT) [facility] Signature Glucose, POC 170 70 - 199 mg/dL Comment: Interpretive Data Glucose is assumed to be non-fasting. Fasting Glucose reference ranges are: 0 - 150 years: 70 mg/dL - 99 mg/dL Current interpretive data was last revised on 2013. POC Device Number [id number] TUCKER [facility] Blood 12/23/2024 7:10 PM CDT 12/23/2024 7:10 PM CDT Rg Larkin MD LAB POCT ORDERABLES - DEVICE Final Result Performing Organization Address [facility] Phone Number [facility] [address] [facility] [address] [place] [address] * XR Shoulder Right 2+ View (12/23/2024 4:36 PM CDT) Anatomical Region Laterality Modality Upper Extremities, Shoulder Right Comp uted Radiography 12/23/2024 4:42 PM CDT Impressions 12/23/2024 4:42 PM CDT 1. New anatomic right total shoulder arthroplasty in expected position. Electronically signed by: Michael Belcher M.D. Narrative 12/23/2024 4:42 PM CDT EXAMINATION: XR SHOULDER RIGHT 2 OR MORE VIEWS HISTORY: Right shoulder osteoarthritis COMPARISON: 05/25/2024 FINDINGS: Two view examination of the right shoulder is performed. There is a new anatomic right total shoulder arthroplasty in expected position. There is postoperative soft tissue gas and swelling. No fracture is present. Procedure Note Michael Belcher MD - 12/23/2024 EXAMINATION: XR SHOULDER RIGHT 2 OR MORE VIEWS HISTORY: Right shoulder osteoarthritis COMPARISON: 05/25/2024 FINDINGS: Two view examination of the right shoulder is performed. There is a new anatomic right total shoulder arthroplasty in expected position. There is postoperative soft tissue gas and swelling. No fracture is present. IMPRESSION: 1. New anatomic right total shoulder arthroplasty in expected position. Electronically signed by: Michael Belcher M.D. Virgen Birch MD IMG XR PROCEDURES F inal Result * POCT glucose (12/23/2024 4:25 PM CDT) [facility] Signature Glucose, POC 97 70 - 199 mg/dL Comment: Interpretive Data Glucose is assumed to be non-fasting. Fasting Glucose reference ranges are: 0 - 150 years: 70 mg/dL - 99 mg/dL Current interpretive data was last revised on 2013. POC Device Number [id number] [facility] Blood 12/23/2024 4:25 PM CDT 12/23/2024 4:25 PM CDT Rg Larkin MD LAB POCT ORDERABLES - DEVICE Final Result [facility] [address] [facility] [place] [place] [address] * OK AN ELECTIVE ENDOTRACHEAL AIRWAY, OK AN PROCEDURE PLACEHOLDER (12/23/2024 2:58 PM CDT) Narrative Aminata Theodore CRNA - 12/23/2024 2:58 PM CDT Aminata Theodore CRNA 12/23/2024 2:59 PM Airway Patient location: OR Urgency: elective Date/time: 12/23/2024 2:25 PM Indications for airway management: anesthesia Difficult airway: no Staff: Placed by: CARAMEL CANDY MAKER: Aminata Theodore CRNA Emergent airway documentation: Risks and benefits discussed: yes Consent obtained: yes Consent given by: patient Airway prep: Preoxygenated: yes Patient position: sniffing Mask difficulty assessment: 1 - vent by mask Spontaneous ventilation during airway: absent Sedation level during airway: GA Final airway details: Final airway type: endotracheal airway Tube type: ETT ETT size: 7.5 mm Cuffed: yes Technique used for successful ETT placement: video laryngoscopy Devices/Methods used in placement: intubating stylet Blade type: Chan Video blade type: Steele Blade size: 3 Cormack-Lehane (video): grade I - full view of glottis Cuff volume: 7 mL Cuff inflated with: air ETT to teeth: 22 cm Placement verified by: auscultation Airway secured with: silk tape Number of attempts: 1 Additional comments: Lips, teeth, and tongue remain unchanged from preop assessment. us Mendel Acosta MD ANESTHESIA ORDERABLES Final Res ult * POCT glucose (12/23/2024 2:48 PM CDT) Glucose, POC 80 70 - 199 mg/dL Comment: Interpretive Data Glucose is assumed to be non-fasting. Fasting Glucose reference ranges are: 0 - 150 years: 70 mg/dL - 99 mg/dL Current interpretive data was last revised on 2013. POC Device Number [id number] [facility] Blood 12/23/2024 2:48 PM CDT 12/23/2024 2:48 PM CDT us Rg Larkin MD LAB POCT ORDERABLES - DEVICE Final Result [facility] [id number] [facility]. [place] [address] * OK AN PROCEDURE PLACEHOLDER (12/23/2024 1:14 PM CDT) Narrative Eliseo Hu MD - 12/23/2024 1:14 PM CDT Eliseo Hu MD 12/23/2024 1:59 PM Peripheral Block Patient location during procedure: pre-op holding Reason for block: post-op pain management per surgeon request Block type: single shot Laterality: right Block type: intercostobrachial nerve block Staff: Supervising provider: Eliseo Hu MD Placed by: Fellow: Jenna Novak MD Procedure prep: Preprocedure checklist: patient identified, procedure contraindications assessed, site marked, procedure consent, surgical consent, IV checked, risks, benefits and alternatives discussed, monitors and equipment checked and timeout performed Patient position: head of bed elevated Procedure performed while patient: sedate with meaningful contact Monitoring: ECG, oximetry and blood pressure Supplemental O2: nasal cannula Prep solution: chlorhexidine/alcohol PPE: provider hat/mask Peripheral nerve block: Technique: landmark(s) Needle type: long-bevel Needle gauge: 25g. Needle length: 50 mm Injection assessment: injection made incrementally with constant monitoring, negative aspiration for heme, no paresthesias noted, normal resistance to injection and see flowsheet for medication details Assessment: Block success: full evaluation pending Events: patient tolerated procedure well with no complications Eliseo Hu MD ANESTHESIA ORDERABLES Final Result * OK AN PROCEDURE PLACEHOLDER (12/23/2024 1:13 PM CDT) Narrative Eliseo Hu MD - 12/23/2024 1:13 PM CDT Eliseo Hu MD 12/23/2024 1:59 PM Peripheral Block Patient location during procedure: pre-op holding Reason for block: post-op pain management per surgeon request Ultrasound image in chart or stored: yes Block type: single shot Laterality: right Block type: brachial plexus - interscalene Staff: Supervising provider: Eliseo Hu MD Placed by: Fellow: Jenna Novak MD Procedure prep: Preprocedure checklist: patient identified, procedure contraindications assessed, site marked, procedure consent, surgical consent, IV checked, risks, benefits and alternatives discussed, monitors and equipment checked and timeout performed Patient position: head of bed elevated Procedure performed while patient: sedate with meaningful contact Monitoring: ECG, oximetry and blood pressure Supplemental O2: nasal cannula Prep solution: chlorhexidine/alcohol PPE: provider hat/mask, sterile gloves and sterile probe cover and gel Skin infiltrated with lidocaine 1%: yes Peripheral nerve block: Technique: ultrasound guided Needle type: short-bevel and echogenic Needle gauge: 21 G Needle length: 80 mm Injection assessment: injection made incrementally with constant monitoring, local visualized surrounding nerve on ultrasound, negative aspiration for heme, no paresthesias noted, see flowsheet for medication details and normal resistance to injection Assessment: Block success: full evaluation pending Events: patient tolerated procedure well with no complications Eliseo Hu MD ANESTHESIA ORDERABLES Final Result * POCT glucose (12/23/2024 12:24 PM CDT) Glucose, POC 92 70 - 199 mg/dL Comment: Interpretive Data Glucose is assumed to be non-fasting. Fasting Glucose reference ranges are: 0 - 150 years: 70 mg/dL - 99 mg/dL Current interpretive data was last revised on 2013. POC Device Number [id number] [facility] Blood 12/23/2024 12:2 4 PM CDT 12/23/2024 12:24 PM CDT Rg Larkin MD LAB POCT ORDERABLES - DEVICE Final Result [facility] [address] [facility]. [place] [address] * eGFR (12/01/2024 2:42 PM CDT) eGFR 66 >=60 mL/min/1. 73 m2 Comment: Interpretive Data Reference Interval Normal >/= 90 mL/min/1.73m2 Mildly decreased* 60 - 89 mL/min/1.73m2 Mildly to moderately decreased 45 - 59 mL/min/1.73m2 Moderately to severely decreased 30 - 44 mL/min/1.73m2 Severely decreased 15 - 29 mL/min/1.73m2 Kidney Failure < 15 mL/min/1.73m2 *Relative to young adult level Estimated glomerular filtration rate is determined by the 2020 CKD-EPI equation recommended by the National Kidney Foundation (A Unifying Approach to GFR Estimation: Recommendations of the NKF-ASK Task Force on Reassessing the Inclusion of Race in Diagnosing Kidney Disease, JASN 202). The CKD-EPI equation should not be used for patients with unstable renal function and has not been validated in children and those over 70. Current interpretive data was last reviewed 2021. Blood 12/01/2024 2:42 PM CDT 12/01/2024 4:11 PM CDT us Rg Larkin MD LAB BLOOD ORDERABLES Final Result [facility] Department [place] [address] * Differential, auto (12/01/2024 2:42 PM CDT) Neutrophil abs 4.70 1.50 - 6.50 K/cumm Imm gran abs 0.02 0.00 - 0.10 K/cumm [facility] Lymphocyte abs 1.32 0.80 - 3.30 K/cumm [facility] Monocyte abs 0.41 0.20 - 0.80 K/cumm [facility] Eosinophil abs 0.27 0.00 - 0.50 K/cumm [facility] Basophil abs 0.04 0.00 - 0.10 K/cumm [facility] Neutrophil pct 69.5 % [facility] Comment: Interpretive Data Percent cell count reference ranges are not reported, since discordance with absolute values may lead to misinterpretation of CBC data. Current Interpretive Data was last revised on 2017. Imm gran pct 0.3 % [facility] Comment: Interpretive Data Percent cell count reference ranges are not reported, since discordance with absolute values may lead to misinterpretation of CBC data. Current Interpretive Data was last revised on 2017. Lymphocyte pct 19.5 % [facility] Comment: Interpretive Data Percent cell count reference ranges are not reported, since discordance with absolute values may lead to misinterpretation of CBC data. Current Interpretive Data was last revised on 2017. Monocyte pct 6.1 % [facility] Comment: Interpretive Data Percent cell count reference ranges are not reported, since discordance with absolute values may lead to misinterpretation of CBC data. Current Interpretive Data was last revised on 2017. Eosinophil pct 4.0 % [facility] Comment: Interpretive Data Percent cell count reference ranges are not reported, since discordance with absolute values may lead to misinterpretation of CBC data. Current Interpretive Data was last revised on 2017. Basophil pct 0.6 % [facility] Comment: Interpretive Data Percent cell count reference ranges are not reported, since discordance with absolute values may lead to misinterpretation of CBC data. Current Interpretive Data was last revised on 2017. Blood 12/01/2024 2:42 PM CDT 12/01/2024 3:58 PM CDT Jacqueline Joe NP LAB BLOOD ORDERABLES Final Result Performing Organization Address City/[facility] Co de Phone Number [facility] [place] [address] * CBC with auto differential (12/01/2024 2:42 PM CDT) Pathologist [facility] WBC 6.76 3.80 - 9.90 K/cumm Hgb 14.7 13.0 - 17.5 g/dL [facility] Hct 45.2 38.9 - 50.3 % [facility] Plt 247 150 - 400 K/cumm [facility] MPV 10.1 9.1 - 12.3 fL [facility] RBC 4.79 4.30 - 5.80 M/cumm [facility] MCV 94.4 81.3 - 96.4 fL [facility] MCH 30.7 27.1 - 33.3 pg [facility] MCHC 32.5 32.3 - 35.7 g/dL [facility] RDW CV 12.6 11.1 - 14.9 % [facility] RDW SD 43.7 35.7 - 48.1 fL [facility] NRBC abs 0.00 0.00 - 0.01 K/cumm [facility] Blood 12/01/2024 2:42 PM CDT 12/01/2024 3:58 PM CDT Jacqueline Joe NP LAB BLOOD ORDERABLES Final Result Performing Organization Address [facility]/ZIP Co de Phone Number [facility] [place] [address] * Vitamin D 25 hydroxy (12/01/2024 2:42 PM CDT) Pathologist [facility] Vitamin D 25-OH 42 30 - 80 ng/mL Blood 12/01/2024 2:42 PM CDT 12/01/2024 3:58 PM CDT us Rg Larkin MD LAB BLOOD ORDERABLES Final Result Performing Organization Address [facility] de Phone Number [facility] [place] [address] * (ABNORMAL) Hemoglobin A1c (12/01/2024 2:42 PM CDT) Pathologist [facility] Hgb A1C 5.8(H) 4.0 - 5.6 % Estimated Average Glucose 120 mg/dL [facility] Comment: The ADA recommends reporting an estimated Average Glucose (eAG) with all Hemoglobin A1c results using the equation derived from a study of 507 normal and diabetic adults. Minority populations were underrepresented and children were not included. (Diabetes Care 2020; 43(S1): S66-S76). The eAG is not equivalent to a fasting glucose. Blood 12/01/2024 2:42 PM CDT 12/01/2024 3:59 PM CDT us Jacqueline Joe NP LAB BLOOD ORDERABLES Final Result Performing Organization Address [facility] de Phone Number [facility] [place] [address] * Comprehensive metabolic panel (12/01/2024 2:42 PM CDT) [facility] Sodium 139 135 - 145 mmol/L Potassium, pl 4.1 3.3 - 4.9 mmol/L [facility] Chloride 102 97 - 110 mmol/L [facility] CO2 31 22 - 32 mmol/L [facility] Anion gap 6 2 - 15 mmol/L [facility] BUN 19 6 - 25 mg/dL [facility] Creatinine 1.18 0.80 - 1.30 mg/dL [facility] Glucose 127 70 - 199 mg/dL [facility] Comment: Interpretive Data Fasting glucose >/= 126 mg/dl is diagnostic for diabetes. Fasting is defined as no caloric intake for at least 8 hours. Fasting glucose between 100 mg/dl to 125 mg/dl is diagnostic of prediabetes. In a patient with classic symptoms of hyperglycemia or hyperglycemic crisis, a random glucose >/= 200 mg/dl is diagnostic for diabetes. In the absence of unequivocal hyperglycemia, results should be confirmed by repeat testing. The classification and Diagnosis of Diabetes Diabetes Care 2021; 46: S19-S40. Current interpretive data was last revised 2022. Calcium 9.7 8.5 - 10.3 mg/dL [facility] Bilirubin, total 1.2 0.1 - 1.2 mg/dL [facility] Protein, pl 7.1 6.5 - 8.5 g/dL [facility] Albumin 4.2 3.5 - 5.0 g/dL [facility] Alk phos 82 40 - 130 Units/L [facility] ALT 26 7 - 55 Units/L [facility] AST 22 10 - 50 Units/L [facility] Blood 12/01/2024 2:42 PM CDT 12/01/2024 3:58 PM CDT us Rg Larkin MD LAB BLOOD ORDERABLES Final Result [facility] Department [place] [address] * CT Shoulder Right WO Contrast (12/01/2024 1:10 PM CDT) Anatomical Region Laterality Modality Upper Extremities Right Computed Tomog hebert 12/01/2024 3:44 PM CDT Impressions 12/01/2024 5:26 PM CDT 1. Severe right glenohumeral joint osteoarthritis with adequate glenoid bone stock. 2. Recommend follow up of the Incidental lung nodule Additional Imaging In 12 Months with 6mm. Dictated by: Cliff Bunch MD The radiology attending physician has personally reviewed this study, and had reviewed and/or edited this written report and agrees with it. Electronically signed by: Candy Rod MD Narrative 12/01/2024 5:26 PM CDT EXAM: 1. CT SHOULDER RIGHT WO CONTRAST HISTORY:Shoulder pain, chronic, osteoarthritis on xray eval glenoid TECHNIQUE: Noncontrast CT of the right shoulder with sagittal and coronal reformats. COMPARISON: 05/25/2024 FINDINGS: Severe right glenohumeral joint osteoarthritis with posterior predominant joint space narrowing, marginal osteophyte formation, biconcave remodeling and subchondral cystic change. There is 22degrees of glenoid retroversion measured at the level of the mid-glenoid. There is 3.2 cm of glenoid bone stock measured at the base of the coracoid. There is mild acromioclavicular joint osteoarthritis. There is a small glenohumeral joint effusion. Small intra-articular loose body measuring 4 mm. There is old granulomatous disease. No acute fracture or dislocation. A peripheral 6 mm right upper lobe pulmonary nodules present. No consolidation within the partially imaged right lung. No suspicious right axillary lymphadenopathy. Normal rotator cuff muscle bulk without retracted tear. Procedure Note Radha Rod MD - 12/01/2024 EXAM: 1. CT SHOULDER RIGHT WO CONTRAST HISTORY:Shoulder pain, chronic, osteoarthritis on xray eval glenoid TECHNIQUE: Noncontrast CT of the right shoulder with sagittal and coronal reformats. COMPARISON: 05/25/2024 FINDINGS: Severe right glenohumeral joint osteoarthritis with posterior predominant joint space narrowing, marginal osteophyte formation, biconcave remodeling and subchondral cystic change. There is 22degrees of glenoid retroversion measured at the level of the mid-glenoid. There is 3.2 cm of glenoid bone stock measured at the base of the coracoid. There is mild acromioclavicular joint osteoarthritis. There is a small glenohumeral joint effusion. Small intra-articular loose body measuring 4 mm. There is old granulomatous disease. No acute fracture or dislocation. A peripheral 6 mm right upper lobe pulmonary nodules present. No consolidation within the partially imaged right lung. No suspicious right axillary lymphadenopathy. Normal rotator cuff muscle bulk without retracted tear. IMPRESSION: 1. Severe right glenohumeral joint osteoarthritis with adequate glenoid bone stock. 2. Recommend follow up of the Incidental lung nodule Additional Imaging In 12 Months with 6mm. Dictated by: Cilff Bunch MD The radiology attending physician has personally reviewed this study, and had reviewed and/or edited this written report and agrees with it. Electronically signed by: Candy Rod MD Rg Larkin MD IMG CT PROCEDURES Fin al Result from Last 3 Months Additional Health Concerns Active Problems Noted Date Diagnosed Date Autogenerated Problem 12/23/2024 Insurance MEDICARE [facility] MEDICARE [facility] Advance Directives For more information, please contact: [phone] * Full Code (Latest Code Status on File) Date Activated Date Inactivated Comments 12/23/2024 5:12 PM 12/24/2024 3:01 PM * Full Code Date Activated Date Inactivated Comments 06/21/2020 11:16 AM 06/22/2020 2:25 PM Care Teams Intraoperative Neuro Tech Relationship Specialty Start Date End Date Emiliano Caballero MD [address] [address] PCP - General Internal Medicine 06/06/20
== END 2025-01-14 14:45 | disposition home or self-care (01) ==
PROVIDERS: PCP Internal Medicine; Visit Provider Podiatrist Foot & Ankle Surgery
DX: M20.5X1 Other deformities of toe(s) (acquired), right foot (principal); I10 Essential (primary) hypertension; E11.9 Type 2 diabetes mellitus without complications
CPT/HCPCS: 36415; 80053; 83036; 85025; 86140; 93005